=== PATIENT | female | born 1955 | race Caucasian/White ===

== ENCOUNTER 2018-06-04 11:29 | Day surgery (SDC) | END 2018-06-04 17:27 | disposition home or self-care (01) ==

== ENCOUNTER → 2018-12-07 | Outpatient (CLI) | payer OTHER ==
[~2018-12-07] MED LIST: HYDROCODONE; NAPR220C2 PO; OMEPRAZOLE
--- NOTE | 2018-12-08 15:54 | RADRPT ---
Echocardiogram Report Patient Name: Isabella RAMIREZtient ID: [id number] : 1955 (63y 3m)Study Date: 12/07/2018 11:57:04 AM Gender: FAccession #: [id number] Tech: Loretta Dinero RDCS Location: ekg Ref.Physician: JOSE L BANSAL Height(Cm): BSA: Weight(Kg): Quality: AdequateAccount #: Procedures: Echocardiographic Report: Transthoracic echocardiogram with complete 2D, M-Mode, and doppler examination. Indications: Iron deficiency. Measurements: 2D/M Mode Doppler Measurement Value Normal Range Measurement Value Normal Range LVIDd 2D 3.7 [ 3.8 - 5.2 ] cm AV Peak Ludin 1.2 [ 100.0 - 170.0 ] cm/sec LVIDs 2D 2.1 [ 2.2 - 3.5 ] cm AV Peak PG 6.0 [ 2.0 - 9.0 ] mmHg LVPWd 2D 1.3 [ 0.6 - 0.9 ] cm LVOT Peak Ludin 1.1 [ 70.0 - 110.0 ] cm/sec IVSd 2D 1.3 [ 0.6 - 0.9 ] cm LVOT Peak PG 5.0 [ 2.0 - 6.0 ] mmHg AoR Diam 2D 2.5 [ 2.3 - 3.1 ] cm MV E Peak Ludin 0.4 [ 60.0 - 130.0 ] cm/sec EDV 2D 57.4 [ 46.0 - 106.0 ] ml MV A Peak Ludin 0.9 [ 100.0 - 120.0 ] cm/sec ESV 2D 14.4 [ 14.0 - 42.0 ] ml MV E/A 0.5 [ 0.8 - 1.5 ] ratio EF 2D 74.9 [ 54.0 - 74.0 ] percent MV Decel Time 102 [ 104 - 258 ] msec LA Dimen 2D 2.5 [ 2.7 - 3.8 ] cm Lat E` Ludin 0.1 [ 10.0 - 15.0 ] cm/sec Lateral E/E` 5.4 [ 1.0 - 2.0 ] ratio MV E/A 0.5 [ 0.8 - 1.5 ] ratio Findings: Left Ventricle: Normal left ventricular systolic function. Normal left ventricular cavity size. Mild concentric left ventricular hypertrophy. Ejection fraction is visually estimated at 65 %. Tissue Doppler/Mitral Doppler indices are consistent with impaired relaxation (Stage I diastolic dysfunction). Right Ventricle: Normal right ventricular size. Normal right ventricular systolic function. Left Atrium: The left atrium is normal in size. Right Atrium: The right atrium is normal in size. Mitral Valve: Normal appearance of the mitral valve. Mild mitral annular calcification. Trace mitral regurgitation. Aortic Valve: Normal appearance of the aortic valve. No significant aortic stenosis or insufficiency. Tricuspid Valve: Normal appearance of the tricuspid valve. There is trace tricuspid regurgitation. Pulmonic Valve: Pulmonic valve not well visualized. Pericardium: Normal pericardium with no significant pericardial effusion. Aorta: Normal aortic root. IVC: Normal size and normal respiratory collapse consistent with normal right atrial pressure. Conclusions: Normal left ventricular systolic function. Normal left ventricular cavity size. Mild concentric left ventricular hypertrophy. Ejection fraction is visually estimated at 65 %. Tissue Doppler/Mitral Doppler indices are consistent with impaired relaxation (Stage I diastolic dysfunction). Normal right ventricular size. Normal right ventricular systolic function. The left atrium is normal in size. The right atrium is normal in size. No significant valvular stenosis or regurgitation seen. Normal pericardium with no significant pericardial effusion. Electronically Signed By: Anand Chester 2018-12-08 15:54:35 PDT
== END | disposition home or self-care (01) ==
LOC: EKG 11:10
PROVIDERS: ATTEND Internal Medicine Hematology & Oncology
DX: D50.8 Other iron deficiency anemias (principal)
CPT/HCPCS: 93306